=== PATIENT | female | born 1990 | race Caucasian/White ===

== ENCOUNTER → 2024-02-01 16:16 | Outpatient (REF) | payer BC, SELFPAY | LOC: RAD 16:16 | PROVIDERS: ATTENDING PHYSICIAN Obstetrics & Gynecology Gynecology; FAMILY PHYSICIAN Nurse Practitioner Family | DX: T83.32XA Displacement of intrauterine contraceptive device, initial encounter (principal) | CPT/HCPCS: 76830; 76856 ==